=== PATIENT | male | born 1985 | race Caucasian/White ===

== ENCOUNTER 2019-08-21 18:16 | Emergency (ER) | payer OTHER ==
[~2019-08-21] VITALS: Ht 193 cm; Wt 120.0 kg
--- NOTE | 2019-08-21 18:40 | ED EENT ---
History of Present Illness General Stated Complaint: FELL/LACERATION INSIDE OF NOSE Source: patient Exam Limitations: no limitations History of Present Illness Date Seen by Provider: Aug 21, 2019 Time Seen by Provider: 18:31 Initial Comments Patient slipped and fell at work. His nose made contact with the sharp corner of the metal box. He sustained a laceration to the inside of the left alar. No loss consciousness. No other injury. Allergies and Home Medications Patient Home Medication List Home Medication List Reviewed: Yes Review of Systems Review of Systems Constitutional: no symptoms reported Nose: see HPI Respiratory: no symptoms reported Cardiovascular: no symptoms reported Past Gfyhxjk-Bzjvde-Ffckop Hx Patient Social History Recent Foreign Travel: No Contact w/Someone Who Travel: No Physical Exam Height, Weight, BMI Height: '" Weight: lbs. oz. kg; BMI Method: General Appearance: WD/WN, no apparent distress Eyes: bilateral eye normal inspection Nose: other (there is a deep gouge in the left alar mucosa it is through and through small puncture wound on the exterior.) Neck: supple Cardiovascular: regular rate, rhythm Respiratory: lungs clear Gastrointestinal: soft Neurologic/Psychiatric: alert Skin: normal color, warm/dry Procedures/Interventions Progress Triple antibiotic ointment saturated vaseline gauze packed in left nostril. Departure Impression Primary Impression: Laceration of nose Disposition: HOME, SELF-CARE Condition: Stable (ERASED) Departure-Patient Inst. Decision time for Depature: 18:48 Referrals: NO,LOCAL PHYSICIAN (PCP/Family) Primary Care Physician Add. Discharge Instructions: Remove nasal packing in 2 days. Take antibiotics as prescribed. Follow-up with your primary care physician or Worker's [employer]. if problems. Scripts Cephalexin (Keflex) 500 Mg Capsule 500 MG PO TID, #21 CAP Prov: CHRISTIE LAND MD 08/21/19 CHRISTIE LAND MD Aug 21, 2019 18:40
[2019-08-21] MEDS ORDERED: CEPH-507 PO (18:50)
[2019-08-21 18:58] VITALS: BP 147/96
== END 2019-08-21 18:58 | disposition home or self-care (01) ==
LOC: ER FS 18:19
DX: S01.21XA Laceration without foreign body of nose, initial encounter (principal); W01.198A Fall on same level from slipping, tripping and stumbling with subsequent striking against other object, initial encounter; Y92.59 Other trade areas as the place of occurrence of the external cause